=== PATIENT | male | born 1975 | race Caucasian/White ===

== ENCOUNTER 2017-12-01 04:02 | Emergency (ER) | payer OTHER ==
[~2017-12-01] VITALS: Ht 190.5 cm; Wt 74.8 kg
[~2017-12-01 04:02] MED LIST: Aspir 8181 MG PO; Bactrim Ds Tab1 EACH PO; Keflex500 MG PO
== END 2017-12-01 04:45 | disposition left against medical advice (07) ==
LOC: ER 04:02
DX: S62.636A Displaced fracture of distal phalanx of right little finger, initial encounter for closed fracture (principal); F17.210 Nicotine dependence, cigarettes, uncomplicated; Z59.0 Homelessness; W50.0XXA Accidental hit or strike by another person, initial encounter
CPT/HCPCS: 73140; 99283-25

== ENCOUNTER 2017-12-01 05:01 | Emergency (ER) | payer OTHER ==
[~2017-12-01] VITALS: Ht 190.5 cm; Wt 83.0 kg
== END 2017-12-01 05:24 | disposition home or self-care (01) ==
LOC: ER 05:01
DX: S62.636A Displaced fracture of distal phalanx of right little finger, initial encounter for closed fracture (principal); F17.210 Nicotine dependence, cigarettes, uncomplicated; Z79.82 Long term (current) use of aspirin; W22.8XXA Striking against or struck by other objects, initial encounter
CPT/HCPCS: 29130; 99283-25

== ENCOUNTER 2017-12-05 02:22 | Emergency (ER) | payer SELFPAY ==
[~2017-12-05] VITALS: Ht 185.4 cm; Wt 56.7 kg
== END 2017-12-05 03:23 | disposition home or self-care (01) ==
LOC: ER 02:22
DX: S62.636D Displaced fracture of distal phalanx of right little finger, subsequent encounter for fracture with routine healing (principal); F17.210 Nicotine dependence, cigarettes, uncomplicated
CPT/HCPCS: 99282

== ENCOUNTER 2018-12-19 17:05 | Emergency (ER) | payer OTHER ==
[~2018-12-19] VITALS: Ht 193 cm; Wt 72.6 kg
[~2018-12-19 17:05] MED LIST changes: +ALBU90OI INH; +IBUP400 PO; +Percocet 5-3251 EACH PO; +Prednisone20 MG PO; +Triamcinolone A15 G3 TOP
[2018-12-19] MEDS ORDERED: Bactrim Ds Tab1 EACH PO (17:25)
[2018-12-19] MEDS ORDERED: Keflex500 MG PO (17:25)
== END 2018-12-19 17:38 | disposition home or self-care (01) ==
LOC: ER 17:05
DX: L02.414 Cutaneous abscess of left upper limb (principal); L03.114 Cellulitis of left upper limb; F17.210 Nicotine dependence, cigarettes, uncomplicated
CPT/HCPCS: 99282

== ENCOUNTER 2019-07-04 12:18 | Emergency (ER) | payer OTHER ==
[~2019-07-04] VITALS: Ht 193 cm; Wt 73.5 kg
[2019-07-04 13:02] LABS: Source, Urine Clean Catch
[2019-07-04 13:17] LABS: Blood, Urine 1+ (Neg); Glucose Qualitative, Urine Neg (Neg); Ketones, Urine 2+ (Neg); Leukocyte Esterase, Urine 1+ (Neg); Nitrite, Urine Neg (Neg); Protein, Urine 2+ (Neg); Specific Gravity, Urine 1.025 (1.003-1.022); Urobilinogen, Urine 1+ (Normal)
[2019-07-04 13:31] LABS: Appearance, Urine Clear (Clear); Color, Urine Yellow (P-Yellow)
[2019-07-04 13:32] LABS: Bacteria Rare /hpf; Bilirubin, Urine 1+ (Neg); Mucus Light (0-Heavy); Red Blood Cells, Urine 0-2 /hpf (0-2); Spermatozoa Few /hpf; Squamous Epithelial Cells Few /hpf (Few); White Blood Cells, Urine 0-2 /hpf (0-5)
[2019-07-04 13:43] LABS: BASOPHILS ABSOLUTE AUTO 0.06 K/mm3 (0.00-0.23); BASOPHILS PERCENT AUTO 0 % (0-2); EOSINOPHILS PERCENT AUTO 2 % (0-6); Hematocrit 42.2 % (37.0-53.0); Hemoglobin 13.9 g/dL (13.5-17.5); IMMATURE GRAN ABSOLUTE AUTO 0.04 K/mm3 (0.00-0.10); IMMATURE GRAN PERCENT AUTO 0 % (0-1); LYMPHOCYTES PERCENT AUTO 14 % (21-46); MONOCYTES PERCENT AUTO 7 % (4-13); Mean Corpuscular HGB Conc 32.9 g/dL (31.5-36.5); Mean Corpuscular Volume 91 fL (80-100); Mean Platelet Volume 9.7 fL (9.1-12.4); NEUTROPHILS ABSOLUTE AUTO 10.49 K/mm3 (1.96-9.15); NEUTROPHILS PERCENT AUTO 77 % (41-73); Platelet Count 320 K/mm3 (150-400); RDW Coefficient Variation 12.9 % (11.7-14.2); RDW Standard Deviation 42.2 fL (35.1-46.3); Red Blood Cell Count 4.63 M/mm3 (4.30-5.90); White Blood Cell Count 13.59 K/mm3 (4.00-11.30)
[2019-07-04 14:14] LABS: Bun/Creatinine Ratio 20.7 (12.0-20.0); Calcium, Blood 9.2 mg/dL (8.5-10.1); Creatinine, Blood 1.4 mg/dL (0.60-1.20); Potassium, Blood 3.7 mmol/L (3.5-5.5)
[2019-07-04] MEDS ORDERED: Augmentin 875-1 EACH PO (15:19)
== END 2019-07-04 16:16 | disposition home or self-care (01) ==
LOC: ER 12:18
PROVIDERS: Physician Assistant
DX: S30.811A Abrasion of abdominal wall, initial encounter (principal); J18.9 Pneumonia, unspecified organism; F17.210 Nicotine dependence, cigarettes, uncomplicated; Z79.899 Other long term (current) drug therapy; Z79.51 Long term (current) use of inhaled steroids; V27.4XXA Motorcycle driver injured in collision with fixed or stationary object in traffic accident, initial encounter
CPT/HCPCS: 36415; 74177; 80048; 81001; 85025; 87086; 99284-25; Q9967

== ENCOUNTER 2019-11-30 21:30 | Emergency (ER) | payer OTHER ==
[~2019-11-30] VITALS: Ht 188 cm; Wt 72.6 kg
[~2019-11-30 21:30] MED LIST changes: +Augmentin 875-1 EACH PO
[2019-11-30] MEDS ORDERED: Keflex500 MG PO (23:21)
[2019-11-30] MEDS ORDERED: Bactrim Ds Tab1 EACH PO (23:21)
== END 2019-11-30 23:46 | disposition home or self-care (01) ==
LOC: ER 21:30
DX: L03.115 Cellulitis of right lower limb (principal); F17.210 Nicotine dependence, cigarettes, uncomplicated; Z23 Encounter for immunization
CPT/HCPCS: 90714; A9270-GY

== ENCOUNTER 2020-12-11 16:54 | Emergency (ER) | payer OTHER ==
[~2020-12-11] VITALS: Ht 190.5 cm; Wt 74.8 kg
[2020-12-11 17:18] LABS: BASOPHILS ABSOLUTE AUTO 0.04 K/mm3 (0.00-0.23); BASOPHILS PERCENT AUTO 1 % (0-2); EOSINOPHILS ABSOLUTE AUTO 0.39 K/mm3 (0.00-0.68); EOSINOPHILS PERCENT AUTO 5 % (0-6); Hematocrit 38.4 % (37.0-53.0); Hemoglobin 12.7 g/dL (13.5-17.5); IMMATURE GRAN ABSOLUTE AUTO 0.02 K/mm3 (0.00-0.10); IMMATURE GRAN PERCENT AUTO 0 % (0-1); LYMPHOCYTES ABSOLUTE AUTO 2.12 K/mm3 (0.84-5.20); LYMPHOCYTES PERCENT AUTO 28 % (21-46); MONOCYTES ABSOLUTE AUTO 0.72 K/mm3 (0.16-1.47); MONOCYTES PERCENT AUTO 10 % (4-13); Mean Corpuscular HGB 30.4 pg (26.0-34.0); Mean Corpuscular HGB Conc 33.1 g/dL (31.5-36.5); Mean Corpuscular Volume 92 fL (80-100); Mean Platelet Volume 9.9 fL (9.1-12.4); NEUTROPHILS ABSOLUTE AUTO 4.18 K/mm3 (1.96-9.15); NEUTROPHILS PERCENT AUTO 56 % (41-73); Platelet Count 285 K/mm3 (150-400); RDW Coefficient Variation 13.1 % (11.7-14.2); RDW Standard Deviation 44.2 fL (35.1-46.3); Red Blood Cell Count 4.18 M/mm3 (4.30-5.90); White Blood Cell Count 7.47 K/mm3 (4.00-11.30)
[2020-12-11 17:34] LABS: Albumin, Blood 3.4 g/dL (3.4-5.0); Albumin/Globulin Ratio 0.9 (0.8-1.8); Bilirubin, Total 0.2 mg/dL (0.1-1.0); Bun/Creatinine Ratio 13.8 (12.0-20.0); Calcium, Blood 8.8 mg/dL (8.5-10.1); Creatinine, Blood 1.3 mg/dL (0.60-1.20); Globulin, Blood 3.9 g/dL (2.2-4.0); Potassium, Blood 3.5 mmol/L (3.5-5.5); Total Protein, Blood 7.3 g/dL (6.4-8.2)
[2020-12-11 18:26] LABS: SARS-Cov-2 (COVID-19) PCR, MMC NEGATIVE (NEGATIVE)
[2020-12-11] MEDS ORDERED: ALBU90OI INH (19:04)
== END 2020-12-11 19:30 | disposition home or self-care (01) ==
LOC: ER 16:54
PROVIDERS: Emergency Medicine
DX: R04.2 Hemoptysis (principal); Z20.822 Contact with and (suspected) exposure to COVID-19
CPT/HCPCS: 71045; 80053; 85025; 93005; 93010; 99284-25; U0004

== ENCOUNTER 2022-02-14 20:19 | Emergency (ER) | payer OTHER ==
[~2022-02-14] VITALS: Ht 193 cm; Wt 74.8 kg
== END 2022-02-14 22:22 | disposition left against medical advice (07) ==
LOC: ER 20:19
DX: R05.9 Cough, unspecified (principal); Z79.899 Other long term (current) drug therapy; Z53.21 Procedure and treatment not carried out due to patient leaving prior to being seen by health care provider
CPT/HCPCS: 71045

== ENCOUNTER 2024-02-27 20:09 | Emergency (ER) | payer OTHER ==
[~2024-02-27] VITALS: Ht 190.5 cm; Wt 70.3 kg
[~2024-02-27 20:09] MED LIST changes: +HYDHCL25 PO; +PRED20 PO; +Ropinirole HCl1 MG PO
[2024-02-27 20:25] VITALS: BP 174/116
[2024-02-27 21:11] LABS: CORONAVIRUS COVID-19 AG Negative (NEGATIVE); INFLUENZA A AG Negative (NEGATIVE); INFLUENZA B AG Negative (NEGATIVE)
== END 2024-02-27 22:44 | disposition home or self-care (01) ==
LOC: ER 20:09
PROVIDERS: Student in an Organized Health Care Education/Training Program
DX: J06.9 Acute upper respiratory infection, unspecified (principal); F17.210 Nicotine dependence, cigarettes, uncomplicated; Z79.52 Long term (current) use of systemic steroids; Z79.899 Other long term (current) drug therapy
CPT/HCPCS: 87428-QW; 99283

== ENCOUNTER 2024-05-20 16:07 | Emergency (ER) | payer OTHER ==
[~2024-05-20] VITALS: Ht 190.5 cm; Wt 74.8 kg
[2024-05-20 16:14] VITALS: BP 157/118
[2024-05-20] MEDS ORDERED: Methadone HCL 10 MG TAB PO ONE (16:20)
== END 2024-05-20 16:33 | disposition home or self-care (01) ==
LOC: ER 16:07
DX: Z76.89 Persons encountering health services in other specified circumstances (principal); F11.90 Opioid use, unspecified, uncomplicated; Z79.899 Other long term (current) drug therapy; Z87.891 Personal history of nicotine dependence
CPT/HCPCS: 99281; A9270

== ENCOUNTER 2024-06-26 17:50 | Emergency (ER) | payer OTHER ==
[~2024-06-26] VITALS: Ht 190.5 cm; Wt 72.6 kg
[2024-06-26 17:54] VITALS: BP 111/91
[2024-06-26] MEDS ORDERED: LORazepam 1 MG Tab PO ONE (18:55)
== END 2024-06-26 21:24 | disposition home or self-care (01) ==
LOC: ER 17:50
DX: L02.413 Cutaneous abscess of right upper limb (principal); Z53.29 Procedure and treatment not carried out because of patient's decision for other reasons; Z79.899 Other long term (current) drug therapy
CPT/HCPCS: 99282; A9270

== ENCOUNTER 2024-09-11 18:18 | Emergency (ER) | payer OTHER ==
[~2024-09-11] VITALS: Ht 188 cm; Wt 74.8 kg
[2024-09-11 18:58] VITALS: BP 157/110
== END 2024-09-11 20:12 | disposition home or self-care (01) ==
LOC: ER 18:18
DX: Z76.0 Encounter for issue of repeat prescription (principal); Z87.891 Personal history of nicotine dependence
CPT/HCPCS: 99281; A9270

== ENCOUNTER 2024-09-24 11:42 | Emergency (ER) | payer OTHER ==
[~2024-09-24] VITALS: Ht 193 cm; Wt 79.4 kg
[2024-09-24 12:02] VITALS: BP 137/104
== END 2024-09-24 13:01 | disposition home or self-care (01) ==
LOC: ER 11:42
DX: Z76.89 Persons encountering health services in other specified circumstances (principal); F11.20 Opioid dependence, uncomplicated; Z59.89 Other problems related to housing and economic circumstances
CPT/HCPCS: 99281; A9270

== ENCOUNTER 2024-10-04 16:46 | Emergency (ER) | payer OTHER ==
[~2024-10-04] VITALS: Ht 190.5 cm; Wt 72.6 kg
[2024-10-04 17:44] VITALS: BP 134/91
== END 2024-10-04 17:50 | disposition home or self-care (01) ==
LOC: ER 16:46
DX: Z76.0 Encounter for issue of repeat prescription (principal); Z87.891 Personal history of nicotine dependence
CPT/HCPCS: 99281; A9270

== ENCOUNTER 2024-11-25 18:48 | Emergency (ER) | payer OTHER ==
[~2024-11-25] VITALS: Ht 190.5 cm; Wt 72.6 kg
[2024-11-25 19:14] VITALS: BP 110/96
== END 2024-11-25 19:46 | disposition home or self-care (01) ==
LOC: ER 18:48
DX: F11.90 Opioid use, unspecified, uncomplicated (principal); Z76.0 Encounter for issue of repeat prescription
CPT/HCPCS: 99281; A9270

== ENCOUNTER 2024-12-25 16:21 | Emergency (ER) | payer OTHER ==
[~2024-12-25] VITALS: Ht 190.5 cm; Wt 70.3 kg
[2024-12-25 17:21] VITALS: BP 138/99
== END 2024-12-25 17:46 | disposition home or self-care (01) ==
LOC: ER 16:21
DX: Z76.89 Persons encountering health services in other specified circumstances (principal)
CPT/HCPCS: 99281; A9270